=== PATIENT | male | born 2000 | race Caucasian/White ===

== ENCOUNTER 2019-05-22 08:09 | Emergency (ER) | payer MEDICAID ==
[~2019-05-22] VITALS: Ht 175.3 cm; Wt 78.9 kg
--- NOTE | 2019-05-22 09:54 | NUR ---
TO [facility] FROM [facility]OBBY.
--- NOTE | 2019-05-22 10:35 | NUR ---
Pt ambulated to RME5. Pt c/o large mass to back of left knee. Pt denies pain at the mass site. Hx of DM1, no other medications. Pt a/ox3. Assessment by Jazmyne PENA and RN. Mass to back of left knee measures [id number]. Pt has been to xray. Awaiting results.
--- NOTE | 2019-05-22 11:30 | NUR ---
DISCHARGE INSTRUCTIONS GIVEN TO PATIENT WITH ONE PRESCRIPTION. RN DISCUSSES ALL SIDE EFFECTS OF MEDICATIONS, USES AND ADDITIONAL MEDICATIONS THAT ARE SIMILAR. PT VERBALIZES UNDERSTANDING OF ALL INSTRUCTIONS, FOLLOW UP AND MEDICAITONS. PT AMBULATED OUT OF ED WITH BOSS, STRONG STEADY GAIT.
[2019-05-22 11:38] VITALS: BP 126/68
== END 2019-05-22 11:39 | disposition home or self-care (01) ==
LOC: ED 11:00
DX: M25.562 Pain in left knee (principal); M71.22 Synovial cyst of popliteal space [Baker], left knee; E10.9 Type 1 diabetes mellitus without complications
CPT/HCPCS: 99284